=== PATIENT | male | born 1955 | race Caucasian/White ===

== ENCOUNTER 2023-09-27 07:05 | Observation (INO) ==
--- NOTE | 2023-08-31 10:25 | PAT Medication Instructions ---
Medication Instructions Date of Service August 31, 2023 Home Medications lisinopril 2.5 mg tablet 2.5 mg PO QAM vitamin B complex 1 tab PO QAM DO NOT take the morning of surgery lisinopril 2.5 mg tablet 2.5 mg PO QAM vitamin B complex 1 tab PO QAM OTHERWISE NOTHING TO EAT OR DRINK AFTER MIDNIGHT Other Notes If you have any questions please call us at [phone] or [phone] or [phone] or [phone]
--- NOTE | 2023-09-04 08:33 | History & Physical Report ---
Date of Service September 04, 2023 date of surgery: 09/27/23 Procedure: Right Total Knee Arthroplasty Surgeon: Randy Gomez DO Assessment & Plan (1) Arthritis of right knee: Plan: Presents for evaluation of continued chronic right knee pain, x-rays taken show advanced degenerative changes to his right knee with complete loss of joint space medial compartment of patellofemoral joint with [id number], osteophyte formation subchondral sclerosis. He has undergone previous viscosupplementation as well as cortisone injection with no improvement. We discussed options he would like to proceed with surgery. Plan will be [employer] patient-matched right total knee arthroplasty, he will schedule at his earliest convenience and he would like outpatient joint program. The risks and benefits have been discussed including, but not limited to, risk of infection, nerve injury, stiffness, loss of motion, failure to improve, etc. Reasonable outcomes and options of treatment were discussed. An explanation of appropriate alternatives to the procedure that may be advantageous were discussed and their risks and benefits, as well as the risks and benefits of not proceeding with treatment. I offered to answer any additional inquiries concerning the treatment involved. All the patient's questions were answered. The patient is agreeable, understanding of the treatment plan and alternatives, and wishes to proceed with the treatment plan. History of Present Illness Chief Complaint: Right knee pain Primary Care Provider: CLAYTON Pereyra Mark is a 67-year-old male who presented for preop evaluation prior to upcoming right total knee arthroplasty. He has a longstanding history of right knee pain which gradually worsened and is now affecting his daily activities, he rates his current pain as a 7 out of 10. He is undergone previous viscosupplementation as well as cortisone injections with no improvement. He has tried oral anti-inflammatories and Tylenol as well. At this point time he has failed conservative measures and wishes to proceed with a right total knee replacement Allergies Allergy/AdvReac Type Severity Reaction Status Date / Time No Known Allergies Allergy Verified 08/18/23 09:31 Home Medications Medication Instructions Recorded Confirmed Type lisinopril 2.5 mg tablet 2.5 mg PO QAM 08/18/23 08/18/23 History vitamin B complex 1 tab PO QAM 08/18/23 08/18/23 History Past Med/Surg History Medical History History of prostate cancer diagnosed 2018--pt pt is "slow growing" and they are just monitoring for now, no treatment Hypertension Surgical History History of colonoscopy History of prostate biopsy History of arthroscopy of right knee History of arthroscopy of left knee History of left inguinal hernia repair History of cholecystectomy History of appendectomy History of tooth extraction partial upper History of tonsillectomy Family History Other No family history of adverse response to anesthesia Social History Smoking Status: Never smoker Second Hand Exposure: No; Do You Dip or Chew Tobacco: No; Tobacco Cessation Education Requested by Patient: No Hx Alcohol Use: No Hx Substance Use: No Preferred Language: Chinese Communication Ability: Effective Superannuation Funds Manager Required: No Beliefs That Will Affect Care: None Current Living Situation: Spouse Other Information That Helps Us Care for You: No Feels Safe at Home: Yes Safety Concerns: Feels Safe At This Time Assistive Devices: Cane, Denture - Upper and Glasses Review of Systems Review of Systems: All systems reviewed & are unremarkable except as noted in HPI & below Constitutional: no fever, no chills and no sweats Respiratory: no cough and no dyspnea Cardiovascular: no chest pain, no dyspnea and no orthopnea Gastrointestinal: no abdominal pain, no nausea and no vomiting Musculoskeletal: as per Subjective / HPI Physical Exam Physical Exam: HT: 5ft 11in WT: 120.2kg Constitutional: WD/WN, vitals as above no acute distress Respiratory: normal respiratory effort, lungs clear to auscultation no respiratory distress, no labored breathing and does not use accessory muscles Cardiovascular: RRR, no murmur, no edema Gastrointestinal (Abdomen): normal bowel sounds, soft, nontender, no hepatosplenomegaly Musculoskeletal: Knee: + knee abnormal to inspection (RIGHT KNEE), + effusion (+1 effusion), + limited ROM of knee (ROM 0/3/110), + knee ROM with crepitation, + joint line tenderness (medial joint line) and + Balwinder's sign positive; no deformity, no skin erythema, no ecchymosis, no valgus laxity, no varus laxity, anterior drawer test negative, Dejuan's sign negative and pivot shift test negative Results & Data Results & Data Diagnostic Findings Right Knee X-ray: Right knee series showing advanced degenerative changes to the right knee, narrowing of the medial compartment and patello-femoral joint with patellar spurring noted, findings showing joint space narrowing of the medial compartment and patello-femoral joint, osteophyte formation and subchondral sclerosis noted. overall varus alignment. no acute bony pathology noted.
--- NOTE | 2023-09-04 09:19 | Anesthesiology Consultation ---
Date of Service September 04, 2023 Assessment & Plan (1) Encounter for pre-operative examination: Chart Review Chart Review: Acceptable Risk for Surgery and Patient seen in Pre Admission Testing - A1C ordered by surgeon- currently not covered with preop testing code - patient declines A1C testing (no hx of hyperglycemia or prediabetes- surgeons office informed) - Patient is NOT an OPJ candidate- per patient (surgeon's office informed- changed to 23 hour obs) Per PAT appt on 09/04/23, no recent illness/disease exposures, illness related symptoms, or recent illness/disease positive tests. Will leave to surgeon's discretion if preop Covid testing needed Teaching & Discussion Pre-Anesthesia Teaching/Discussion Notes: Instructed NPO after midnight before surgery,except medications with 15 cc of water. Medication instructions provided according to the PAT guidelines. History Surgery Operation Date: 09/27/23 09:00 Proposed Procedures p Right Total Knee Arthroplasty - Randy Gomez DO Height/Weight Height: 5 ft 11 in Weight: 127.3 kg Allergies Allergy/AdvReac Type Severity Reaction Status Date / Time No Known Allergies Allergy Verified 08/18/23 09:31 Medications Home Medications Medication Instructions Recorded Confirmed Last Taken lisinopril 2.5 mg tablet 2.5 mg PO QAM 08/18/23 08/18/23 Unknown vitamin B complex 1 tab PO QAM 08/18/23 08/18/23 Unknown Past Medical History Medical History History of prostate cancer diagnosed 2018--pt pt is "slow growing" and they are just monitoring for now, no treatment Hypertension Exercise / Class Metabolic Activity II 4-5 Yardwork/Stairs/Walk up hill (one flight of stairs - no chest pain or SOB ) Past Family History Family History Other No family history of adverse response to anesthesia Past Surgical History Surgical History History of appendectomy History of arthroscopy of left knee History of arthroscopy of right knee History of cholecystectomy History of colonoscopy History of left inguinal hernia repair History of prostate biopsy History of tonsillectomy History of tooth extraction partial upper Past Anesthesia History No Hx of Anesthesia Complications and No Family Hx of Anesthesia Complications History of PONV No Hx of PONV and No Hx of Motion Sickness Social History Smoking Status: Never smoker Do You Dip or Chew Tobacco: No Hx Alcohol Use: No Hx Substance Use: No substance use type: does not use Review of Systems - Hx of snoring- no witnessed apnea- no hx of sleep study Patient denies chest pain, shortness of breath, dyspnea on exertion, reflux, cough, wheezing, palpitations. No hx of seizures, stroke, DC. No hx of blood clots or blood transfusions Physical Exam Vital Signs VITALS BP 137/86 P 54 TEMP 97.8 SP02 97% RESP 16 Constitutional no acute distress ENMT Mouth: no TMJ clicking Thyromental Distance: > or= 3.5 Finger Breadths (4.0) Mallampati Class: III Top partial denture Missing bottom molar [place] to molar Neck neck extension not limited Respiratory normal respiratory effort; no respiratory distress Auscultation: lungs clear to auscultation bilaterally; no wheezes Cardiovascular Rate/Rhythm: regular rate and regular rhythm Heart Sounds: no murmur Vessels: no carotid bruit Musculoskeletal Spine: no pain with cervical ROM Extremities: extremities normal to inspection Psychiatric Orientation: alert Lab Results Anesthesia Preop Results Results Anesthesia Widget: WBC 5.21 K/ul (4.8-10.8) 09/04/23 Hgb 13.4 g/dl (14.0-18.0) L 09/04/23 Hct 39.6 % (42.0-52.0) L 09/04/23 Plt 316 K/uL (130-400) 09/04/23 Na 136 mmol/L (136-145) 09/04/23 K 4.6 mmol/L (3.5-5.1) 09/04/23 Cl 108 mmol/L (98-107) H 09/04/23 CO2 23 mmol/L (21-32) 09/04/23 BUN 17 mg/dl (6-23) 09/04/23 Creat 0.98 mg/dl (0.6-1.4) 09/04/23 Glucose Level 95 mg/dl (70-99(Fasting)) 09/04/23 PT 10.1 Seconds (9.0-12.0) 09/04/23 PTT 29 Seconds (21-31) 09/04/23 INR 0.9 (0.9-1.1) 09/04/23 Urine Color Yellow 09/04/23 Urine Appearance Clear (Clear) 09/04/23 Urine pH 6.5 (4.5-7.5) 09/04/23 Urine Specific [place] 1.009 (1.000-1.030) 09/04/23 Urine Protein Negative (Negative) 09/04/23 Urine Glucose (UA) Negative (Negative) 09/04/23 Urine Ketones Negative (Negative) 09/04/23 Urine Blood Negative (Negative) 09/04/23 Urine Nitrite Negative (Negative) 09/04/23 Urine Bilirubin Negative (Negative) 09/04/23 Urine Urobilinogen Negative (Negative) 09/04/23 Urine Leukocyte Esterase Trace (Negative) H 09/04/23 Urine WBC (Auto) 0-5 /hpf (0-5) 09/04/23 Urine RBC (Auto) 0-2 /hpf (0-2) 09/04/23 Urine Hyaline Casts (Auto) 0-2 /lpf (0-2) 09/04/23 Urine Epithelial Cells (Auto) 0-2 /hpf (0-2) 09/04/23 Urine Bacteria (Auto) None Seen (None Seen) 09/04/23 Blood Type A Negative 09/04/23 Antibody Screen NEGATIVE 09/04/23 Testing Electrocardiogram Date: 09/04/23 SB with 1st degree AVB at 53bpm Rightward axis Chest X-Ray Date: 09/04/23 FINDINGS: The lungs are clear. The cardiac silhouette is mildly enlarged. No pleural effusions. No pneumothorax. No acute fractures identified. Prior cholecystectomy. There are old, healed right lower rib fractures noted. IMPRESSION: Mild cardiomegaly. Otherwise, no acute process within the chest.
[~2023-09-27 07:05] MED LIST: BUPIVACAINE 0.5 % 5 MG/1 ML PF 10ML VIAL ONE; ROPIVACAINE 0.5% 5 MG/ML 30 ML VIAL ONE
[2023-09-27] MEDS ORDERED: MIDAZOLAM HCL 1 MG/ML 2ML VIAL ONE (07:32)
[2023-09-27] MEDS ORDERED: fentaNYL citrate PF 100 MCG/2 ML VIAL ONE (07:32)
[2023-09-27] MEDS: ACETAMINOPHEN 500 MG TAB PO SCH ×2 (07:44→14:20)
[2023-09-27] MEDS: METOCLOPRAMIDE HCL 10 MG TABLET PO SCH (07:44)
[2023-09-27] MEDS: GABAPENTIN 300 MG CAP PO SCH (07:45)
[2023-09-27] MEDS: FAMOTIDINE 20 MG TAB PO SCH (07:45)
[2023-09-27] MEDS: CeleBREX 200 MG CAP PO SCH (07:46)
--- NOTE | 2023-09-27 08:21 | History & Physical Bridge Note ---
Date of Service September 27, 2023 History & Physical Bridge Note I have examined the patient, reviewed the History & Physical and in the interval since the performance of the History & Physical I have noted the following changes of clinical significance: no changes noted
[2023-09-27] MEDS: LR 500ML BOLUS, THEN 15ML/HR IV SCH (08:35)
[2023-09-27] MEDS: dexAMETHasone**PF** 10 MG/ML VIAL IV SCH (08:35)
[2023-09-27] MEDS ORDERED: ONDANSETRON INJ 2 MG/ML 2 ML VIAL IV PRN ×2 (08:59→13:14)
[2023-09-27] MEDS ORDERED: fentaNYL citrate PF 100 MCG/2 ML VIAL IV PRN (08:59)
[2023-09-27] MEDS ORDERED: ATROPINE SULFATE 0.1 MG/ML 10ML SYR IV PRN (08:59)
[2023-09-27] MEDS ORDERED: ePHEDrine sulfate 50 MG/ML AMP IV PRN (08:59)
[2023-09-27] MEDS: TRANEXAMIC ACID 1,000 MG **IV Pre-op IV SCH (09:30)
[2023-09-27] MEDS: ceFAZolin 3000MG 3,000 MG/72.5 ML BAG IV SCH (09:44)
[2023-09-27] MEDS: LR 60ML/HR IV SCH (09:58)
[2023-09-27] MEDS: ORTHO JOINT ANESTHETIC ONE (10:37)
[2023-09-27] MEDS: TRANEXAMIC ACID 1,000 MG **IV Intra-op IV SCH (10:58)
--- NOTE | 2023-09-27 11:00 | Operative Report ---
Post Operative Report Pre & Post Diagnosis Operation Date: 09/27/23 09:00 Pre-Op Diagnosis: Arthritis of right knee Post-Op Diagnosis: Arthritis of right knee I identified the patient and participated in the time-out.: Yes Procedure Operation Date: 09/27/23 09:00 Actual Procedures p Right Total Knee Arthroplasty(Right) Utilizing [employer] journey 2 p atient-matched total knee arthroplasty size femur 9 tibia 8 poly 13 patella 35 rashad- Randy Gomez DO Surgeon Randy Gomez DO Sales Representative [facility] FIELD Estimated Blood Loss 10 Findings Consistent with Post-Op Diagnosis Patient presents with severe end-stage tricompartmental degenerative joint disease 7 degree flexion contracture marginal osteophytes subchondral sclerosis subchondral cystic changes and moderate to large effusion Specimens Bone and cartilage Drains Medium bore Hemovac Anesthesia Type MAC Spinal Regional Complications none Disposition Accompanied Patient To Recovery: No Disposition: Recovery Room Indications Patient presents with severe end-stage DJD of the right knee having failed attempted conservative management occluding physical therapy anti-inflammatories relative rest activity modification corticosteroid injection viscosupplementation the above intraoperative findings were noted Description of Procedure After proper prepping and draping of the Right lower extremity anterior midline incision was made over the region of the extensor extensor mechanism after meticulous hemostasis was obtained and maintained in subcutaneous tissues a medial parapatellar incision was made The patella was subluxed lateralward the medial lateral gutter were cleaned from any hypertrophic synovitis and scar tis lj of the distal femoral block was placed and the distal femoral osteotomy cut was made subsequently the chamfers anterior and posterior osteotomy cuts were made utilizing the 4-in-1 block the tibia was subsequently subluxed anteriorward medial and ateral meniscal remnants were excised in their entirety remnants of the anterior and posterior cruciate ligaments were excised in their entirety excellent exposure of the proximal tibia was obtained the tibial osteotomy guide was placed on the proximal tibial osteotomy cut was made once again the knee was irrigated with copious amounts of sterile saline solution the patella was subsequently everted lateralward thickened scar tissue around the patella was removed the patella was subsequently cut utilizing a freehand technique and was drilled prepared for final preparation and placement of patella socially flexion-extension gaps were checked and the equal and symmetric trials were placed to the appropriate femoral and tibial trials with poly-spacer being placed for equal flexion and extension gaps and full range of motion including extension to 0 and flexion to 140 the trial components after having been taken to recovery range of motion was subsequently removed meticulous hemostasis was obtained and maintained subsequently a knee block injection of joint cocktail including ropivacaine 0.5% 150 mg. Bupivacaine 0.5% epinephrine 1-200,030 mL's toradol 30 mg dexamethasone 4 mg ketamine 10 mg clonidine 100 micrograms normal saline solution 30 mg was infiltrated into the soft tissues of the posterior knee medial lateral gutters and periosteal synovium special attention was paid to protect neurovascular structures at all times subsequently trial components having been removed the knee was irrigated with sterile saline solution. debris was removed the proximal tibia was subsequently prepared and was made ready for the placement of the tibial component tibial component was also cemented and tamped into position the femoral component was subsequently placed and cemented in the position the patellar component was subsequently cemented in position because hemostasis once again obtained and maintained wound having been thoroughly irrigated with debridement and debridement lavage was performed as well as a medial parapatellar incision closed with #1 Vicryl in interrupted fashion subcutaneous was closed with #2 Vicryl skin was closed with skin clips. PA-C was necessary for prepping and drapping as well as wound closure of deep fascia Sub cutaneous tissue and skin and was necessary for the case. A sterile compressive dressing was placed patient was taken to recovery in stable condition of report dictated by Jason I attest to the content of the Intraoperative Record and any orders documented therein. Any exceptions are noted below.Due to the complex nature of the procedure, the entire surgery was performed with the operational assistance of RASHIDA Redmond The mri assistant, under direct supervision, was involved in the actual performance of all aspects of the surgical procedure including hemostasis, tissue retraction and incision, instrument management, patient positioning, and wound closure. I attest to the content of the Intraoperative Record and any orders documented therein. Any exceptions are noted below.
[2023-09-27] MEDS: ROPIV 0.5% 246mg, Ketorolac 30mg, EPINEPHrine 0.5mg in NSS INFIL SCH (11:02)
[2023-09-27] MEDS ORDERED: PROPOFOL IV EMULSION 10 MG/ML 20 ML VIAL IV ONE (11:22)
--- NOTE | 2023-09-27 12:38 | Anesthesiology Progress Note ---
Date of Service September 27, 2023 Anesthesia Post Procedure Vital Signs Vital Signs: Temp Pulse Pulse Resp BP Pulse Ox O2 Del Method 09/27/23 12:20 50 L 13 109/74 99 Room Air 09/27/23 12:10 53 L 12 114/70 98 Room Air 09/27/23 12:00 53 L 11 L 107/68 99 Room Air 09/27/23 11:50 55 L 12 101/63 97 Room Air 09/27/23 11:40 59 L 16 102/66 99 Room Air 09/27/23 11:31 96.8 F L 60 14 102/62 100 Room Air 09/27/23 07:25 98.4 F 58 L 18 135/90 98 Room Air Pain Intensity Right Knee: Pain Intensity: 7 Transfer of Care Handoff Completed per policy Notes Mental Status: alert / awake / arousable and participated in evaluation Patient Amnestic to Procedure: Yes Nausea / Vomiting: adequately controlled Pain: adequately controlled Airway Patency, RR, SpO2: stable & adequate BP & HR: stable & adequate Hydration State: stable & adequate Neuraxial Anesthesia: was administered and sensory block is resolving Anesthetic Complications: no major complications apparent and Pt Satisfied with anesthetic care
[2023-09-27] MEDS ORDERED: bisacodyL 10 MG SUPP PR PRN (13:14)
[2023-09-27] MEDS ORDERED: NALOXONE HCL 0.4 MG/1 ML VIAL/CARP IV PRN (13:14)
[2023-09-27] MEDS ORDERED: MAGNESIUM HYDROXIDE SUSP 30 ML UDC PO PRN (13:14)
[2023-09-27] MEDS ORDERED: diphenhydrAMINE Capsule 25 MG CAP PO PRN (13:14)
[2023-09-27] MEDS ORDERED: METOCLOPRAMIDE HCL INJ 5 MG/ML 2 ML VIAL IV PRN (13:14)
[2023-09-27] MEDS: SODIUM CHLORIDE 0.9% 1,000 ML IV SCH (13:25)
--- NOTE | 2023-09-27 13:26 | XRay Report ---
RIGHT KNEE 2 VIEWS History: Right total knee arthroplasty. Degenerative arthritis. Postop. FINDINGS: The patient is status post a right total knee arthroplasty. The hardware is intact. No frac ture or dislocation. Surgical drains are in place. IMPRESSION: Right total knee arthroplasty. No evidence for hardware complication. ACT 112: Negative or not required by law. Electronically signed by: Morales Maya M.D. 09/27/2023 1:24 PM
[2023-09-27] MEDS: KETOROLAC TROMETHAMINE 15 MG/ML VIAL IV SCH (14:20)
[2023-09-27] MEDS: ceFAZolin 2000MG 2,000 MG/15 ML SYR IV SCH (16:50)
[2023-09-27] MEDS: oxyCODONE HCL IR 5 MG TAB (IMMEDIATE RELEASE) PO PRN (16:53)
[2023-09-27] MEDS: SENNA 8.6 MG TAB PO SCH (19:57)
[2023-09-27] MEDS: ASPIRIN 81 MG ECTAB PO SCH (19:57)
[2023-09-27] MEDS: DOCUSATE SODIUM 100 MG CAP PO SCH (19:57)
[2023-09-27] MEDS: HYDROmorphone INJ 1 MG/ML SYRINGE IV PRN (23:07)
[2023-09-28 06:38] LABS: Hematocrit (blood only) 33.7 % (42.0-52.0); Hemoglobin 11.3 g/dl (14.0-18.0); Mean Corpuscular Hemoglobin 29.8 pg (25.0-34.0); Mean Corpuscular Hgb Conc 33.5 g/dL (32.0-36.0); Mean Corpuscular Volume 88.9 fL (80.0-100.0); Mean Platelet Volume 11.1 fL (9.4-12.4); Platelet Count 273 K/uL (130-400); RDW Coefficient of Variation 12.9 % (11.5-14.5); RDW Standard Deviation 41.9 fL (36.4-46.3); Red Blood Count 3.79 M/uL (4.70-6.10); White Blood Count 12.86 K/ul (4.8-10.8)
--- NOTE | 2023-09-28 07:11 | Orthopedic Progress Note ---
Date of Service September 28, 2023 Assessment & Plan (1) History of total right knee replacement: Plan: POD #1 s/p Right TKA pt/ot dvt proph with DINA/SCD/ASA plan for d/c home with HHPT Admission and Anticipated Discharge Date Admission Date: September 27, 2023 Subjective POD #1 s/p Right TKA Review of Systems Constitutional: no fever, no chills and no sweats Respiratory: no cough and no dyspnea Cardiovascular: no chest pain and no dyspnea Gastrointestinal: no abdominal pain, no nausea and no vomiting Physical Exam Physical Exam: Vital Signs Temp 36.3 C L 09/28/23 03:00 Pulse 50 L 09/28/23 03:00 Resp 18 09/28/23 03:00 BP 102/61 09/28/23 03:00 Pulse Ox 97 09/28/23 03:00 O2 Del Method Room Air 09/28/23 03:00 Intake & Output 09/27/23 09/28/23 09/28/23 18:59 06:59 18:59 Intake Total 1372.5 / 3814.167 2441.667 / 3814.16 7 Output Total 30 / 1580 1550 / 1580 Balance 1342.5 / 2234.167 891.667 / 2234.167 Weight 124.4 kg Intake: IV 272.5 / 1244.167 971.667 / 1244.167 Lactated Ringe r's 1,000 ml @ 15 0 / 0 mls/hr IV .Q24 H FOREIGN Rx#: [id number] Sodium Chlorid e 0.9% 1,000 ml @ 971.667 / 971.667 100 mls/hr IV .Q10H FOREIGN Rx#: [id number] Tranexamic Aci d / 0.7% NaCl 1, 200 / 200 000 mg In 100 ml @ 600 mls/hr IV TODAY@0600 FOREIGN Rx#:[id number] ceFAZolin 3000 MG 3,000 mg In 72 72.5 / 72.5 .5 ml @ 130 ml s/hr IV PREOP FOREIGN Rx#:[id number] IV Perioperative 1100 / 1100 Oral 1470 / 1470 Output: Urine 1275 / 1275 Estimated Blood Loss 10 / 10 Drain Output 20 / 295 275 / 295 Right Knee Hem ovac #1 295 275 / 295 Other: Weight Measureme nt Method Standing Scale Musculoskeletal: Right Leg: NVDI, calf SNT, negative tram sign. DP palpable, able to wiggle toes/ankle movement without difficulty. dressing clean dry and intact. Results & Data Vital Signs (Past 12 Hours) Vital Signs Temp Pulse Resp BP Pulse Ox O2 Del Method 09/28/23 03:00 36.3 C L 50 L 18 102/61 97 Room Air 09/27/23 23:00 36.3 C L 54 L 20 129/80 96 Room Air 09/27/23 19:44 Room Air 09/27/23 19:10 36.8 C 53 L 18 125/75 97 Room Air Laboratory Results Laboratory Results WBC 12.86 K/ul (4.8-10.8) H 09/28/23 05:30 RBC 3.79 M/uL (4.70-6.10) L 09/28/23 05:30 Hgb 11.3 g/dl (14.0-18.0) L 09/28/23 05:30 Hct 33.7 % (42.0-52.0) L 09/28/23 05:30 MCV 88.9 fL (80.0-100.0) 09/28/23 05:30 MCH 29.8 pg (25.0-34.0) 09/28/23 05:30 MCHC 33.5 g/dL (32.0-36.0) 09/28/23 05:30 RDW Std Deviation 41.9 fL (36.4-46.3) 09/28/23 05:30 RDW Coeff of Octavia 12.9 % (11.5-14.5) 09/28/23 05:30 Plt Count 273 K/uL (130-400) 09/28/23 05:30 MPV 11.1 fL (9.4-12.4) 09/28/23 05:30 Impressions Knee X-Ray 09/27/23 11:35 RIGHT KNEE 2 VIEWS History: Right total knee arthroplasty. Degenerative arthritis. Postop. FINDINGS: The patient is status post a right total knee arthroplasty. The hardware is intact. No fracture or dislocation. Surgical drains are in place. IMPRESSION: Right total knee arthroplasty. No evidence for hardware complication. ACT 112: Negative or not required by law. Electronically signed by: Morales Maya M.D. 09/27/2023 1:24 PM
[2023-09-28 07:26] LABS: BUN Creatinine Ratio 18.4 (10-20); Calcium 8.1 mg/dl (8.6-10.3); Est GFR (African American) 87.9 ml/min; Est GFR (Non-African American) 75.9 ml/min
[2023-09-28] MEDS: MULTIVITAMIN TAB PO SCH (08:24)
[2023-09-28] MEDS: lisinopril 2.5 MG TAB PO SCH (08:24)
[2023-09-28] MEDS: VITAMIN B COMPLEX TAB PO SCH (08:25)
[2023-09-28] MEDS ORDERED: CeleBREX 200 MG CAP PO SCH (21:00)
--- NOTE | 2023-09-29 12:46 | Electrocardiogram Report ---
Test Reason : Blood Pressure : / mmHG Vent. Rate : 053 BPM Atrial Rate : 053 BPM P-R Int : 220 ms QRS Dur : 094 ms QT Int : 452 ms P-R-T Axes : 057 089 047 degrees QTc Int : 424 ms Sinus bradycardia with 1st degree A-V block Nonspecific ST abnormality Abnormal ECG When compared with ECG of 04-SEP-2023 09:36, No significant change was found Confirmed by Black Doll ([id number]) on 09/29/2023 12:45:38 PM Referred By: Randy Gomez Confirmed By:Black Doll
--- NOTE | 2023-09-30 13:12 | Discharge Summary ---
Date of Service DATE OF DISCHARGE: September 28, 2023 DATE OF ADMISSION: 09/27/23 Admission HPI Per Admitting Provider Mark is a 67-year-old male who presented for preop evaluation prior to upcoming right total knee arthroplasty. He has a longstanding history of right knee pain which gradually worsened and is now affecting his daily activities, he rates his current pain as a 7 out of 10. He is undergone previous viscosupplementation as well as cortisone injections with no improvement. He has tried oral anti-inflammatories and Tylenol as well. At this point time he has failed conservative measures and wishes to proceed with a right total knee replacement Principal Diagnosis RIGHT TOTAL KNEE REPLACEMENT Discharge Exam Musculoskeletal Right knee: NVDI, calf SNT, negative tram sign. DP palpable, able to wiggle toes/ankle movement without difficulty. TORI dressing clean dry and intact. expected post-operative bruising noted. Discharge Data Allergies Allergy/AdvReac Type Severity Reaction Status Date / Time No Known Allergies Allergy Verified 09/27/23 07:49 Procedures Performed Operation Date: 09/27/23 09:00 Actual Procedures p Right Total Knee Arthroplasty(Right) - Randy Thomson DO Ordered Studies 09/27/23 05:00 US - OR guided needle placemen Routine Hospital Course (1) History of total right knee replacement: POD #1 s/p Right TKA pt/ot dvt proph with DINA/SCD/ASA plan for d/c home with HHPT Total Time Total Time Spent Total Time Spent (In Minutes): 20 Discharge Plan Discharge Items Patient Disposition: Home - Home Health Services Reason For Visit: Right Knee Osteoarthritis Discharge Diagnosis: RIGHT TOTAL KNEE REPLACEMENT Activity: Per Instructions section Weightbearing Comment: WBAT WITH WALKER Non-emergency contact: Surgeon Call non-emergency contact if: you have any medication questions, your temperature is above 101, your wound has increased redness, your wound has increased drainage and your wound pain has increased Follow-up/Referrals: Bryce Tabares CRNP [Primary Care Provider] - Diet: Regular Addtl Attending Provider Instructions: ACTIVITY RECOMMENDATIONS: SELF CARE INSTRUCTIONS AFTER TOTAL KNEE REPLACEMENT A. You may need to continue a physical therapy program after discharge from the hospital. There are several options available to you. Your doctor will assist you in selecting the best one for you. 1. An out-patient facility 2 to 3 times a week for therapy or home therapy. 2. Continue working on all exercises taught to you in the hospital. Your goals should be to increase bending of your knee to 90 degrees and beyond and to fully straighten your knee. B. You may progress at your own pace from walking with a walker or crutches to a cane; then to no assistive devices. C. Make walking a part of your daily routine. Be up as much as comfortable with rest periods throughout the day. Rest with leg elevation is very important. Use the ice wrap frequently for the first 3-4 weeks. D. There are no restrictions on activities. You may ride in a car, shop, participate in general ledger bookkeeper and all social activities. E. Wear the long elastic stockings (DINA hose) 20 hours a day for 2 weeks after surgery. They can be removed several times a day for laundering and for a bath. F. You may shower, no tub baths until cleared by your doctor. SPECIAL CARE INSTRUCTIONS: VERY IMPORTANT TO READ AND REVIEW A. There are a few signs you need to watch for after you are home. Call [facility] [place] if you notice any of the followin. Increased severe knee pain. Some pain is expected especially when you exercise. 2. Increased swelling in your leg or knee; pain or swelling of the calf muscle in either lower leg. 3. Any fluid drainage from the incision. 4. Shortness of breath or chest pain. B. Please call [facility] at if you have any concerns or questions about your operation or recovery. The doctor or his nurse will return your call promptly. C. You must take antibiotics before dental work, bladder, bowel or other surgery. Your doctor will provide you with a permanent care to carry describing this precaution. IMPORTANT: * REMEMBER TO TAKE ASPIRIN, 81 MG, TWICE DAILY FOR 4 WEEKS UNLESS OTHERWISE DIRECTED. THIS IS YOUR BLOOD THINNER. * HIGH RISK PATIENTS MAY BE PRESCRIBED A STRONGER BLOOD THINNER. THIS WILL BE PROVIDED AT DISCHARGE. * CALL IF INCREASED PAIN, REDNESS, DRAINAGE OR FEVER GREATER THAT 101. * WEAR DINA HOSE 20 HOURS PER DAY FOR 2 WEEKS. DRESSING INSTRUCTIONS * TORI Dressing- This is a large suction dressing covering your incision. This will help pull any excess drainage from the wound and allow your incision to heal properly. You may shower with this if you can keep the unit outside of the shower. If any bleeding or leakage is noted please call your doctor's office. This will remain on your incision for 7 days and then should be removed. This can be done yourself or by the home nursing staff if applicable. The entire unit is disposable once removed. Once removed, keep incision clean and dry. If redness or drainage is noted, please call your surgeon. ONCE OTRI IS REMOVED, FOLLOW THESE INSTRUCTIONS: DERMABOND Prineo- This is a mesh tape dressing that is covered with glue. It should remain in place until the incision is properly healed, usually 10-14 days. This dressing is designed to naturally slough off. You may trim the excess mesh tape as it peels off. Incision may be briefly wet in a shower. Dry immediately by blotting with a clean, dry towel. Do not bath or swim until instructed by your doctor. Do not scratch, rub, or pick at the dressing. Do not apply any topical ointments or lotions until dressing is completely removed and/or instructed by your doctor. There may be a small piece of suture material at one end of your incision. Do not pull or trim this. If it is bothersome or catching on clothing, you may cover it with a band-aid. IF INCISION IS LEAKING THROUGH DRESSING, CALL THE OFFICE . FOLLOW UP VISIT: If appointment is not already scheduled: Please call [facility] [place] to make a follow-up appointment for 2 weeks after your surgery at . Pending Studies at Discharge: No Stand-Alone Forms: My [facility] Medications and DC Order Prescriptions: New celecoxib [Celebrex] 200 mg capsule 200 mg PO BID 30 Days Qty: 60 0RF aspirin 81 mg tablet,delayed release (DR/EC) 81 mg PO BID 30 Days Qty: 60 0RF acetaminophen 500 mg tablet 1,000 mg PO Q8 21 Days Qty: 126 0RF cefadroxil 500 mg capsule 500 mg PO BID 14 Days Qty: 28 0RF docusate sodium 100 mg Capsule 100 mg PO BID Qty: 20 0RF oxycodone 5 mg tablet 5 - 10 mg PO Q6H PRN (Reason: pain) Qty: 30 0RF Rx Instructions: ongoing therapy, supervising dr ke thomson. max 6 tabs in 24 hours. date of surgery 09/27/23 Continued lisinopril 2.5 mg Tablet 2.5 mg PO QAM vitamin B complex Tablet 1 tab PO QAM Krames/Other Patient Handouts: Knee Replace Home Recovery, Knee Replacement Post Op Admission Data Admit Date/Time: 09/27/23 11:35 Attending Provider: Randy Thomson Admit Provider: Randy Thomson Primary Care Provider: Bryce Tabares Other Interventions: Discharge Summary Assessment (RN) Last Done: 09/28/23 11:30
== END 2023-09-28 12:10 | disposition home health service (06) ==
LOC: 3N 07:05 → ASU 07:05